=== PATIENT | male | born 1985 | race Two or more races ===

== ENCOUNTER 2023-02-01 19:42 | Emergency (ER) | payer SELFPAY ==
[2023-02-01 19:59] VITALS: BP 132/77; PULSE 84; RESP 18; TEMP 36.7; O2SAT 99; BMI 24.4
--- NOTE | 2023-02-01 20:14 | ED.GENADULT ---
HPI - General Adult General Time Seen by Provider: 20:15 Date Seen: 02/01/23 Chief complaint: Extremity Pain/Injury, Lower Stated complaint: Bottom of feet very painful Time Seen by Provider: 02/01/23 20:14 Source: patient, RN notes reviewed and interpreter translator Mode of arrival: ambulatory Limitations: no limitations History of Present Illness HPI narrative: Patient is a very pleasant 37-year-old gentleman see with the aid of the interpreter translator. He has multiple complaints. His biggest concern is that he has pain on his feet, burning pain, sometimes feels a pinching sensation. Starting to feel little pain in his fingers when I question him. Went to [facility] clinic recently, was started on gabapentin for this. We could not find a monofilament test here but it certainly sounds as if he had monofilament testing there. He believes his hemoglobin A1c about 2 months ago was 14, has insulin dependent diabetes. Denies any back pain no radiculopathic type features. He is having difficulty sleeping due to this foot pain. He is not having any side effects from the gabapentin dose he is on right now. He is scheduled to follow-up at [facility] on February 21. He is also complaining of difficulty swallowing at times. He notes sometimes is pills will feel like they get stuck, sometimes food. The longest that symptoms maybe lasted is 2 hours. He will feel a pressure or pain in there until it passes. Denies any heartburn or regurgitant symptoms. Related Data Home Medications Medication Instructions Recorded Confirmed gabapentin 100 mg capsule 100 mg PO 3XD PRN 02/01/23 02/01/23 glipizide 10 mg tablet, extended 10 mg PO DAILY 02/01/23 02/01/23 release 24 hr insulin NPH-regular 70-30 U-100 10 unit subcut BID 02/01/23 02/01/23 insulin 100 unit/mL subcutaneous pen (Novolin 70-30 FlexPen U-100 Insulin) lisinopril 2.5 mg tablet 2.5 mg PO DAILY 02/01/23 02/01/23 metformin 1,000 mg tablet 1,000 mg PO BID 02/01/23 02/01/23 omega 3-did-qts-fish oil 1,000 mg 1 cap PO DAILY 02/01/23 02/01/23 (120 mg-180 mg) capsule (Fish Oil) Allergies Allergy/AdvReac Type Severity Reaction Status Date / Time No Known Drug Allergies Allergy Verified 02/01/23 20:02 Review of Systems Status of ROS: Reports: 6 or more systems reviewed and unremarkable except as noted in History and below [facility] Medical History Hypertension ?I10 - Essential (primary) hypertension (ICD-10) Diabetic neuropathy ?E11.40 - Type 2 diabetes mellitus with diabetic neuropathy, unspecified (ICD-10) Diabetes mellitus, type 2 ?E11.9 - Type 2 diabetes mellitus without complications (ICD-10) Surgical History No significant past surgical history Social History Smoking Status: Never smoker Second hand tobacco smoke exposure: No How often do you have a drink containing alcohol: never How often do you have six or more drinks on one occasion: Never AUDIT-C Alcohol total score: 0 Non-prescribed substance use: denies use Exam Const: Vital Signs, click to edit/add: Vital Signs - 24 hr 02/01/23 19:59 Temperature 98.0 F Pulse Rate [Right Pulse Oximeter] 84 Respiratory Rate 18 Blood Pressure [Le ft Upper Arm] 132/77 Pulse Oximetry 99 Oxygen Delivery Me thod Room Air Documenting provider has reviewed patient's vital signs: yes Common normals: no apparent distress, oriented x3, no limitations, healthy appearing, alert and well nourished General appearance: cooperative, comfortable, well kempt and well developed Nutritional appearance: thin HENMT: Common normals: normocephalic, head/scalp atraumatic, hearing grossly normal bilaterally and external nose normal Head and scalp: normocephalic and atraumatic Face and sinus: normal facial exam Nose: external nose normal Eye: Common normals: PERRL, EOMs intact bilaterally, conjunctivae normal and no scleral icterus Conjunctiva: conjunctiva(e) normal Pupil: PERRL Neck & C-Spine: Common normals: full ROM, no lymphadenopathy, supple, no JVD and thyroid normal Thyroid: thyroid normal Resp: Common normals: normal respiratory effort, no retractions, no use of accessory muscles, clear to auscultation bilaterally and percussion normal Auscultation: clear to auscultation bilaterally Percussion: percussion normal Cardio: Common normals: no JVD, regular rate, regular rhythm, S1 normal heart sound, S2 normal heart sound, no gallops, no clicks and no murmurs Rate: regular rate Rhythm: regular rhythm Heart sounds: S1 normal and S2 normal GI: Common normals: Normal to inspection, nondistended, normoactive bowel sounds present, soft to palpation, non-tender and no hepatosplenomegaly Palpation: soft and no hepatosplenomegaly Extremity: Other: Has symmetric dorsalis pedis and posterior tibialis pulses. His feet are warm, normal coloration, no swelling. He states he can feel light touch sensation on both feet. We could not locate a monofilament. Neuro: Common normals: oriented x3 Sensorium/orientation: alert Psych: Appearance: well kempt Course Course Hospital Course: Spent a significant amount of time discussing diabetic neuropathy in the need to adequately control his diabetes to help prevent worsening of his symptoms. We reviewed the increasing gabapentin, he has plenty of room to go for treatment of this condition. As for the dysphagia, will need an EGD. Went over his questions, did pull up his pants legs and wanted to show me concerns at the end. He pointed out new veins on his legs that are now prominent. He has tortuous varicose veins on both lower extremities that are developing, no overlying erythema or tenderness, no evidence of any thrombosis. Vital Signs Vital signs: Initial Vital Signs Temperature 98.0 F 02/01/23 19:59 Temperature Source Temporal Artery Scan 02/01/23 19:59 Pulse Rate 84 02/01/23 19:59 Respiratory Rate 18 02/01/23 19:59 Blood Pressure 132/77 02/01/23 19:59 Blood Pressure Mean 95 02/01/23 19:59 Blood Pressure Position Sitting 02/01/23 19:59 Pulse Oximetry 99 02/01/23 19:59 Oxygen Delivery Method Room Air 02/01/23 19:59 Vital Signs Temperature 98.0 F 02/01/23 19:59 Pulse Rate 84 02/01/23 19:59 Respiratory Rate 18 02/01/23 19:59 Blood Pressure 132/77 02/01/23 19:59 Pulse Oximetry 99 02/01/23 19:59 Oxygen Delivery Method Room Air 02/01/23 19:59 Temperature 98.0 F 02/01/23 19:59 Pulse Rate 84 02/01/23 19:59 Respiratory Rate 18 02/01/23 19:59 Blood Pressure 132/77 02/01/23 19:59 Pulse Oximetry 99 02/01/23 19:59 Oxygen Delivery Method Room Air 02/01/23 19:59 Critical Care Time Critical Care Time Critical Care Time: No Discharge Plan Discharge Clinical Impression: Dysphagia, Varicose veins of both lower extremities, Diabetic peripheral neuropathy Patient Disposition: Home, Self-Care Condition: Stable Instructions: Diabetic Neuropathy (ED), Dysphagia (ED) Additional Instructions: 1. For the peripheral neuropathy from the diabetes, it is essential that you work to get your diabetes under better control. This certainly can help symptoms improve and certainly not have symptoms progress with better diabetic control. The gabapentin that you are on is to help with this pain. Increase your dose to 200 mg twice a day and then 300 mg at bedtime. The gabapentin dosage can be increased much higher than this, work with [facility] to increase the dose. If your diabetes is difficult to manage, endocrinology referral could be considered. Make sure you get an updated prescription for the gabapentin before you run out, make sure they know that we have increased her dose in the ER. 2. With your complaints of difficulty swallowing, try to make sure you chew food thoroughly and take small bites. Drink plenty of fluid when you take her pills and only take 1 pill at a time. You will need to get scheduled for an EGD, contact [facility] to have them help you get this set up. If you should have food or pills that stick and are not passing through, may need a more emergent EGD. 3. Your developing varicose veins. There is no evidence of any complications with them at this time. You can talk to your primary care provider more about varicose veins when you follow-up. Activity Level: Activity as Tolerated Discharge Diet: Diabetic Prescriptions: No Action glipizide 10 mg tablet extended release 24hr 10 mg PO DAILY metformin 1,000 mg tablet 1,000 mg PO BID gabapentin 100 mg capsule 100 mg PO 3XD PRN lisinopril 2.5 mg tablet 2.5 mg PO DAILY omega [id number]-[id number]-fish oil [Fish Oil] 1,000 mg (120 mg-180 mg) capsule 1 cap PO DAILY Novolin 70-30 FlexPen U-100 100 unit/mL (70-30) insulin pen 10 unit subcut BID Stand Alone Forms: MyHealth Info Instructions
[2023-02-01 20:48] VITALS: BP 129/69; PULSE 86; RESP 18; TEMP 36.9; O2SAT 99
[2023-02-01 21:18] VITALS: BP 129/69; PULSE 86; RESP 18; TEMP 36.9
== END 2023-02-01 21:19 | disposition home or self-care (01) ==
PROVIDERS: Emergency Provider Family Medicine
DX: R13.10 Dysphagia, unspecified (principal); I83.93 Asymptomatic varicose veins of bilateral lower extremities; E11.42 Type 2 diabetes mellitus with diabetic polyneuropathy
CPT/HCPCS: 99283